=== PATIENT | female | born 1950 | race Caucasian/White ===

== ENCOUNTER 2016-06-03 19:47 | Observation (INO) | payer OTHER ==
[2016-06-03] VITALS (7 sets, daily range): BP systolic 169–196; BP diastolic 75–115; PULSE 76–102; RESP 16–20; TEMP 98.9; O2SAT 95–100
[~2016-06-03] VITALS: Ht 167.6 cm; Wt 90.2 kg
[~2016-06-03 19:47] MED LIST: AMIT25TA9 PO; ASPI81CH CHEW; CLON0.1T PO; HYDR25TA5 PO; LOSA100T PO; METO50TA PO
[2016-06-03] MEDS ORDERED: DIAZEPAM 5 MG TAB PO ONE (21:00)
[2016-06-03] MEDS ORDERED: ASPIRIN 81 MG CHEW TAB PO ONE (21:00)
[2016-06-03] MEDS ORDERED: MORPHINE SULFATE 4 MG/ML INJ IV PUSH ONE (21:00)
[2016-06-03] MEDS ORDERED: SODIUM CHLORIDE 0.9% FLUSH 5 ML FLUSH IVF PRN ×2 (21:00→23:15)
[2016-06-03 21:06] LABS: AUTOMATED NEUTROPHIL # 6.1 TH/MM3 (1.8-7.7); BASOPHIL # 0.1 TH/MM3 (0-0.2); BASOPHIL % 0.7 % (0.0-2.0); EOSINOPHIL # 0.1 TH/MM3 (0-0.4); EOSINOPHIL % 1.1 % (0.0-4.0); HEMATOCRIT 47.9 % (35.0-46.0); HEMO FLAGS DIFF FINAL; LYMPH % 31.5 % (9.0-44.0); LYMPHOCYTE # 3.3 TH/MM3 (1.0-4.8); MEAN CELL VOLUME 85.7 FL (80.0-100.0); MEAN CORPUSCULAR HEMOGLOBIN 27.9 PG (27.0-34.0); MEAN CORPUSCULAR HGB CONC 32.5 % (32.0-36.0); MONO % 7.3 % (0.0-8.0); NEUT % 59.4 % (16.0-70.0); PLATELET COUNT 260 TH/MM3 (150-450); RED BLOOD COUNT 5.59 MIL/MM3 (4.00-5.30); RED CELL DISTRIBUTION WIDTH 13.2 % (11.6-17.2); WHITE BLOOD COUNT 10.4 TH/MM3 (4.0-11.0)
[2016-06-03 21:18] LABS: APTT (PATIENT) 27.4 SEC (24.3-30.1); PROTHROMBIN TIME - PATIENT 10.5 SEC (9.8-11.6)
--- NOTE | 2016-06-03 21:22 | RADHPO ---
EXAM DATE/TIME: 06/03/2016 20:55 [facility] COMPARISON: No previous studies available for comparison. INDICATIONS : Chest pain. MEDICAL HISTORY : Hypertension. SURGICAL HISTORY : None. ENCOUNTER: Initial ACUITY: 4 - 6 days PAIN SCORE: 4/10 LOCATION: Bilateral upper chest FINDINGS: PA and lateral views of the chest demonstrate the lungs to be symmetrically aerated without evidence of mass, infiltrate or effusion. The cardiomediastinal contours are unremarkable. Osseous structure s are intact. CONCLUSION: No acute disease. Keith Warren MD on June 03, 2016 at 21:20 Board Certified Radiologist. This report was verified electronically.
--- NOTE | 2016-06-03 21:46 | PD ---
HPI Chief Complaint: Hypertension Time Seen by Provider: 20:30 Travel History International Travel<30 days: No Contact w/Intl Traveler<30days: No Traveled to known affect area: No History of Present Illness HPI Patient is a 66 year old female who comes in complaining of high blood pressure. She says for the past week she has noticed that her blood pressure has been elevated. She says she has tried relaxing as things have been very stressful in her life, but this has not helped. She says she feels differently when her blood pressure is elevated, but cannot really describe what she feels other than facial flushing. She says that since arrived in the Emergency Department she has started having chest pain and headache. She says she noticed her vision seemed to be blurred when she arrived, and she feels a little short of breath. She does acknowledge that she is very anxious about how she is feeling. PFSH Past Medical History Arthritis: Yes Cancer: No Cardiovascular Problems: Yes (HTN) High Cholesterol: Yes Chest Pain: Yes Diminished Hearing: No Endocrine: No Hypertension: Yes Musculoskeletal: Yes Psychiatric: No Respiratory: No Tetanus Vaccination: > 5 Years Influenza Vaccination: Yes ?: Not Past Surgical History Abdominal Surgery: Yes (APPY) Appendectomy: Yes (1979) Gynecologic Surgery: Yes (HYSTERECTOMY) Hysterectomy: Yes (COMPLETE 1992) Other Surgery: Yes (APPY, HYSTERECTOMY, FEET) Social History Alcohol Use: No Tobacco Use: No Substance Use: No Allergies-Medications (Allergen,Severity, Reaction): Coded Allergies: Amlodipine (Verified Allergy, Severe, Swelling, 06/03/16) Enalapril (Verified Allergy, Severe, Swelling, 06/03/16) HMG-CoA Reductase Inhibitors (Verified Allergy, Unknown, Patient denies, ) Sulfa (Verified Allergy, Unknown, Patient denies, 06/03/16) Uncoded Allergies: CO-Q10 (Adverse Reaction, Unknown, Patient denies , 06/03/16) Reported Meds & Prescriptions Reported Meds & Active Scripts Active Clonidine (Clonidine HCl) 0.1 Mg Tab 0.1 Mg PO BID Reported Metoprolol Tartrate 50 Mg Tab 50 Mg PO BID Amitriptyline (Amitriptyline HCl) 25 Mg Tab 25 Mg PO HS Hydrochlorothiazide 25 Mg Tab 25 Mg PO HS Losartan (Losartan Potassium) 100 Mg Tab 100 Mg PO HS Aspirin 81 Mg Chew 162 Mg CHEW DAILY Review of Systems Except as stated in HPI: all other systems reviewed are Neg General / Constitutional: No: Fever, Chills HENT: Positive: Headaches Cardiovascular: Positive: Chest Pain or Discomfort Respiratory: Positive: Shortness of Breath, No: Cough Gastrointestinal: Positive: Loss of Appetite, No: Nausea, Vomiting Musculoskeletal: No: Edema, Pain Neurologic: No: Weakness, Dizziness Physical Exam Narrative GENERAL: Awake and alert, appears anxious. SKIN: Warm and dry. HEAD: Atraumatic. Normocephalic. EYES: Pupils equal and round. No scleral icterus. X ocular movements intact. ENT: Mucous membranes pink and moist. NECK: Trachea midline. No JVD. CARDIOVASCULAR: Regular rate and rhythm. No murmur appreciated. RESPIRATORY: No accessory muscle use. Clear to auscultation. Breath sounds equal bilaterally. GASTROINTESTINAL: Abdomen soft, non-tender, nondistended. MUSCULOSKELETAL: No obvious deformities. No clubbing. No cyanosis. No edema. NEUROLOGICAL: Awake and alert. No obvious cranial nerve deficits. Motor grossly within normal limits. Normal speech. PSYCHIATRIC: Appropriate mood and affect; insight and judgment normal. Data Data Last Documented VS Vital Signs Date Time Temp Pulse Resp B/P Pulse Ox O2 Delivery O2 Flow Rate FiO2 06/03/16 22:55 83 16 169/75 98 Room Air 06/03/16 19:53 98.9 Orders Complete Blood Count With Diff (06/03/16 20:52) Comprehensive Metabolic Panel (06/03/16 20:52) Magnesium (Mg) (06/03/16 20:52) Prothrombin Time / Inr (Pt) (06/03/16 20:52) Act Partial Throm Time (Ptt) (06/03/16 20:52) Troponin I (06/03/16 20:52) Lipase (06/03/16 20:52) Ecg Monitoring (06/03/16 20:52) Bilateral Bp Monitoring (06/03/16 20:52) Iv Access Insert/Monitor (06/03/16 20:52) Oximetry (06/03/16 20:52) Aspirin Chew (Aspirin Chew) (06/03/16 21:00) Morphine Inj (Morphine Inj) (06/03/16 21:00) Sodium Chloride 0.9% Flush (Ns Flush) (06/03/16 21:00) Chest, Pa & Lat (06/03/16 20:52) Diazepam (Valium) (06/03/16 21:00) Electrocardiogram (06/03/16 20:10) Potassium Chloride (Kcl) (06/03/16 22:00) Clonidine (Catapres) (06/03/16 22:30) Potassium Chlor 20 Meq Premix (Kcl 20 Me (06/03/16 23:15) Place In Observation (06/03/16 23:08) Vital Signs (Adult) Q4H (06/03/16 23:08) Cardiac Rhythm .As Directed (06/03/16 23:08) ^ Notify Dr: Other .PRN (06/03/16 23:08) ^ Notify Dr. Parameters (06/03/16 23:08) Resp Oxygen Nasal Cannula (06/03/16 ) Ckmb (Isoenzyme) Profile (06/03/16 23:55) Ckmb (Isoenzyme) Profile (06/04/16 02:55) Troponin I (06/03/16 23:55) Troponin I (06/04/16 02:55) Electrocardiogram (06/03/16 23:55) Electrocardiogram (06/04/16 02:55) ^ Obtain (06/03/16 23:08) Sodium Chloride 0.9% Flush (Ns Flush) (06/03/16 23:15) Sodium Chloride 0.9% Flush (Ns Flush) (06/04/16 09:00) Admit Order (Ed Use Only) (06/03/16 ) CKMB (06/04/16 00:05) CKMB% (06/04/16 00:05) CKMB (06/04/16 03:05) CKMB% (06/04/16 03:05) Labs Laboratory Tests Test 06/03/16 21:00 White Blood Count 10.4 TH/MM3 Red Blood Count 5.59 MIL/MM3 Hemoglobin 15.6 GM/DL Hematocrit 47.9 % Mean Corpuscular Volume 85.7 FL Mean Corpuscular Hemoglobin 27.9 PG Mean Corpuscular Hemoglobin 32.5 % Concent Red Cell Distribution Width 13.2 % Platelet Count 260 TH/MM3 Mean Platelet Volume 10.1 FL Neutrophils (%) (Auto) 59.4 % Lymphocytes (%) (Auto) 31.5 % Monocytes (%) (Auto) 7.3 % Eosinophils (%) (Auto) 1.1 % Basophils (%) (Auto) 0.7 % Neutrophils # (Auto) 6.1 TH/MM3 Lymphocytes # (Auto) 3.3 TH/MM3 Monocytes # (Auto) 0.8 TH/MM3 Eosinophils # (Auto) 0.1 TH/MM3 Basophils # (Auto) 0.1 TH/MM3 CBC Comment DIFF FINAL Differential Comment Prothrombin Time 10.5 SEC Prothromb Time International 1.0 RATIO Ratio Activated Partial 27.4 SEC Thromboplast Time Sodium Level 141 MEQ/L Potassium Level 2.9 MEQ/L Chloride Level 104 MEQ/L Carbon Dioxide Level 27.2 MEQ/L Anion Gap 10 MEQ/L Blood Urea Nitrogen 12 MG/DL Creatinine 0.86 MG/DL Estimat Glomerular Filtration 66 ML/MIN Rate Random Glucose 101 MG/DL Calcium Level 10.0 MG/DL Magnesium Level 1.9 MG/DL Total Bilirubin 1.1 MG/DL Aspartate Amino Transf 21 U/L (AST/SGOT) Alanine Aminotransferase 31 U/L (ALT/SGPT) Alkaline Phosphatase 62 U/L Troponin I LESS THAN 0.02 NG/ML Total Protein 7.7 GM/DL Albumin 3.8 GM/DL Lipase 100 U/L MDM Medical Decision Making Medical Screen Exam Complete: Yes Emergency Medical Condition: Yes Medical Record Reviewed: Yes Interpretation(s) ECG shows sinus rhythm at 86, 0.[address] depression in V3 and V4. No ST elevation. Differential Diagnosis ACS versus NSTEMI versus STEMI versus pneumonia versus costochondritis versus panic attack Narrative Course Patient is a 66-year-old female comes in due to high blood pressure. When she got here she started to have chest pain. Exam shows no acute abnormalities, the patient does appear anxious. IV established, patient connected to the clinical research monitor. Labs sent. Chest x-ray shows no acute abnormalities. Patient given 2 mg of morphine and 5 mg of Valium for her symptoms. Given 162 mg of aspirin. Given 0.1 mg clonidine. Labs show a potassium of 2.9, this was replaced. Troponin is negative. Patient continues to have left-sided chest pain. We'll place an chest pain center for further management. Diagnosis Primary Impression: Chest pain Qualified Code: R07.9 - Chest pain, unspecified type Additional Impression: Uncontrolled hypertension Admitting Information Admitting Physician Requests: Observation Merline Marie MD Jun 03, 2016 21:46
[2016-06-03 21:53] LABS: ALKALINE PHOSPHATASE 62 U/L (45-117); ALT (GPT) 31 U/L (10-53); ANION GAP 10 MEQ/L (5-15); AST (GOT) 21 U/L (15-37); BICARBONATE 27.2 MEQ/L (21.0-32.0); BLOOD UREA NITROGEN 12 MG/DL (7-18); CHLORIDE 104 MEQ/L (98-107); GLOMERULAR FILTRATION RATE 66 ML/MIN (>89); MAGNESIUM 1.9 MG/DL (1.5-2.5); SODIUM (NA) 141 MEQ/L (136-145); TOTAL BILIRUBIN ADULT 1.1 MG/DL (0.2-1.0)
[2016-06-03 21:55] LABS: POTASSIUM 2.9 MEQ/L (3.5-5.1)
[2016-06-03] MEDS ORDERED: POTASSIUM CHLORIDE 10 MEQ CONTROLLED RELEASE TAB PO ONE (22:00)
[2016-06-03] MEDS ORDERED: cloNIDine HCL 0.1 MG TAB PO ONE (22:30)
[2016-06-04] VITALS (8 sets, daily range): BP systolic 144–182; BP diastolic 66–82; PULSE 61–79; RESP 16–20; TEMP 96.9–97.7; O2SAT 97–99
[2016-06-04] MEDS: POTASSIUM CHLOR 20 MEQ PREMIX 100 ML IV SCH ×2 (00:19→02:13)
[2016-06-04 00:40] LABS: CREATINE KINASE 137 U/L (26-192)
[2016-06-04 00:53] LABS: CKMB 1.7 NG/ML (0.5-3.6)
[2016-06-04 03:53] LABS: CREATINE KINASE 118 U/L (26-192)
[2016-06-04 04:05] LABS: CKMB 1.5 NG/ML (0.5-3.6)
[2016-06-04 08:31] LABS: POTASSIUM 3.5 MEQ/L (3.5-5.1)
[2016-06-04 08:58] LABS: BICARBONATE 28.7 MEQ/L (21.0-32.0); MAGNESIUM 2.1 MG/DL (1.5-2.5)
[2016-06-04] MEDS ORDERED: SODIUM CHLORIDE 0.9% FLUSH 5 ML FLUSH IVF SCH (09:00)
[2016-06-04] MEDS ORDERED: METOPROLOL TARTRATE 50 MG TAB PO SCH (09:15)
[2016-06-04] MEDS ORDERED: cloNIDine HCL 0.1 MG TAB PO SCH (09:15)
--- NOTE | 2016-06-04 11:18 | EKG ---
Date Performed: 06/04/2016 Time Performed: 02:31:06 PTAGE: 66 years EKG: Sinus rhythm Normal ECG PREVIOUS TRACING : 06/03/2016 20.10 Compared to prior tracing no significant change DOCTOR: Freddie Street Interpretating Date/Time 06/04/2016 11:17:14
--- NOTE | 2016-06-04 12:14 | HHI.HP ---
cc: Shawn Mendez MD [facility] Service [facility] Primary Care Physician Shawn Mendez MD Admission Diagnosis Chest Pain Diagnoses: (1) Chest pain Diagnosis: Principal (2) Hypertensive urgency Diagnosis: Principal (3) Epistaxis Diagnosis: Principal (4) Hypokalemia Diagnosis: Principal Chief Complaint: elevated BP, chest pain Travel History International Travel<30 Days: No Contact w/Intl Traveler <30 Da: No Traveled to Known Affected Are: No History of Present Illness Dictate year-old female with history of hypertension, hyperlipidemia, anxiety and depression is admitted to chest pain center. Patient states that her blood pressure has been elevated on and off for one week. She states she wasn't feeling bad and was monitoring it. She then states her blood pressure became elevated at 204/101 yesterday. States she tried to relax at home without relief. She states her face became flushed. She states she also experienced tunnel vision, shaking, "couldn't remember stuff", experienced blurry vision and a constant headache. She states she had company at her house this week and was exhausted from it and does admit to some increased anxiety. Patient additionally states she has frequent nosebleeds this week whereas they usually are sparsely occurring. Epistaxis episodes stopped with pressure. Patient denies anticoagulant use although is on ASA at home. Patient states when she arrived to the ED she started to experience pain right of the sternum, heaviness in the center of her chest, and tightness up under both collar bones. Pain lasted from 8pm to 2 am. She states she had some shortness of breath at that time. States she had tingling in the fingers of both hands and her hands and feet felt cold. Denies any worsening leg swelling recently. Denies any abdominal pain, nausea, vomiting, diarrhea, melena, hematochezia. Denies any history of DVT or pulmonary embolus, hemoptysis, estrogen use, recent trauma or surgery. Denies any fevers or chills, cold, or cough symptoms. Patient states she has had chest pain and palpitations in the past but this was different. She states her prior chest pain was stabbing sensation. Patient sees Dr. Bose for her blood pressure. He has been under control prior to this and she has been compliant with her medications. She is compliant with low-salt diet and states she exercises, dancing, doing elliptical, and swimming. Review of Systems Constitutional: DENIES: Fever, Chills, Dizziness Eyes: COMPLAINS OF: Blurred vision Ears, nose, mouth, throat: COMPLAINS OF: Epistaxis Respiratory: COMPLAINS OF: Shortness of breath, DENIES: Cough Cardiovascular: COMPLAINS OF: Chest pain, DENIES: Lower Extremity Edema Gastrointestinal: DENIES: Abdominal pain, Black stools, Bloody stools, Diarrhea , Vomiting Neurologic: COMPLAINS OF: Headache, Paresthesias, DENIES: Localized weakness, Speech Problems Psychiatric: COMPLAINS OF: Anxiety Other ROS x 10 negative unless otherwise stated above. Past Family Social History Past Medical History Arthritis Hypertension Hyperlipidemia DDD Anxiety and depression which are controlled Past Surgical History Appendectomy Hysterectomy Surgery on bilateral feet to straighten toes. Reported Medications Clonidine (Clonidine HCl) 0.1 Mg Tab 0.1 Mg PO BID Metoprolol Tartrate 50 Mg Tab 50 Mg PO BID Amitriptyline (Amitriptyline HCl) 25 Mg Tab 25 Mg PO HS Hydrochlorothiazide 25 Mg Tab 25 Mg PO HS Losartan (Losartan Potassium) 100 Mg Tab 100 Mg PO HS Aspirin 81 Mg Chew 162 Mg CHEW DAILY Allergies: Coded Allergies: Amlodipine (Verified Allergy, Severe, Swelling, 06/03/16) Enalapril (Verified Allergy, Severe, Swelling, 06/03/16) HMG-CoA Reductase Inhibitors (Verified Allergy, Unknown, Patient denies, ) Sulfa (Verified Allergy, Unknown, Patient denies, 06/03/16) Uncoded Allergies: CO-Q10 (Adverse Reaction, Unknown, Patient denies , 06/03/16) Family History Mother: Second pacemaker late in life, Alzheimer's. No history of HI or stroke. Father: Received kidney transplant. Had a heart issue while on dialysis. Social History Patient drinks a glass of wine 1-2 times per week. Patient tried smoking in her youth but was never smoked regularly. Denies illicit drug use. Physical Exam Vital Signs Vital Signs Date Time Temp Pulse Resp B/P Pulse Ox O2 Delivery O2 Flow Rate FiO2 06/04/16 09:00 64 06/04/16 08:20 71 17 176/82 97 Room Air 06/04/16 07:00 67 157/79 157/80 06/04/16 07:00 17 98 Room Air 06/04/16 07:00 69 17 Room Air 06/04/16 04:57 Room Air 06/04/16 04:55 97.7 61 16 148/66 99 Room Air 06/04/16 00:38 69 16 157/73 97 Room Air 06/04/16 00:00 79 16 182/79 99 Room Air 06/04/16 00:00 79 99 Room Air 06/03/16 23:47 95 21 06/03/16 22:55 83 16 169/75 98 Room Air 06/03/16 22:55 16 06/03/16 22:09 76 20 189/84 98 Room Air 06/03/16 21:38 82 16 186/82 99 Room Air 06/03/16 21:29 98 Room Air 06/03/16 21:29 18 06/03/16 20:40 80 18 180/80 06/03/16 19:53 98.9 102 20 196/115 100 Physical Exam GENERAL: This is a well-nourished, well-developed patient, in no apparent distress. SKIN: No rashes, ecchymoses or lesions. Cool and dry. HEAD: Atraumatic. Normocephalic. EYES: Pupils equal, round, reactive bilaterally. EOMs intact. No scleral icterus. No injection or drainage. ENT: No active nasal bleeding. Uvula midline. Airway patent. NECK: Trachea midline. CHEST: Reproducible tenderness under the right breast, but no reproducible tenderness over the sternum. CARDIOVASCULAR: Regular rate and rhythm. No murmurs. RESPIRATORY: Clear to auscultation. Breath sounds equal bilaterally. No wheezes , rales, or rhonchi. GASTROINTESTINAL: Normoactive bowel sounds. Abdomen soft, non-tender, nondistended. MUSCULOSKELETAL: No lower extremity edema. NEUROLOGICAL: Awake and alert. Patient admits to blurry vision in the right eye and lower visual zavala on exam, but does state she has a cataract in this eye. No other cranial nerve deficits noted. Motor grossly within normal limits. Normal speech. 5/5 strength in bilateral arms and legs. Laboratory Laboratory Tests Test 06/03/16 06/04/16 06/04/16 06/04/16 21:00 00:05 03:05 08:15 White Blood Count 10.4 Red Blood Count 5.59 Hemoglobin 15.6 Hematocrit 47.9 Mean Corpuscular Volume 85.7 Mean Corpuscular Hemoglobin 27.9 Mean Corpuscular Hemoglobin 32.5 Concent Red Cell Distribution Width 13.2 Platelet Count 260 Mean Platelet Volume 10.1 Neutrophils (%) (Auto) 59.4 Lymphocytes (%) (Auto) 31.5 Monocytes (%) (Auto) 7.3 Eosinophils (%) (Auto) 1.1 Basophils (%) (Auto) 0.7 Neutrophils # (Auto) 6.1 Lymphocytes # (Auto) 3.3 Monocytes # (Auto) 0.8 Eosinophils # (Auto) 0.1 Basophils # (Auto) 0.1 CBC Comment DIFF FINAL Differential Comment Prothrombin Time 10.5 Prothromb Time International 1.0 Ratio Activated Partial 27.4 Thromboplast Time Sodium Level 141 144 Potassium Level 2.9 3.5 Chloride Level 104 108 Carbon Dioxide Level 27.2 28.7 Anion Gap 10 7 Blood Urea Nitrogen 12 8 Creatinine 0.86 0.75 Estimat Glomerular Filtration 66 77 Rate Random Glucose 101 107 Calcium Level 10.0 9.1 Magnesium Level 1.9 2.1 Total Bilirubin 1.1 Aspartate Amino Transf 21 (AST/SGOT) Alanine Aminotransferase 31 (ALT/SGPT) Alkaline Phosphatase 62 Troponin I LESS THAN 0.02 LESS THAN 0.02 LESS THAN 0.02 Total Protein 7.7 Albumin 3.8 Lipase 100 Total Creatine Kinase 137 118 Creatine Kinase MB 1.7 1.5 Result Diagram: 06/03/16209906/04/16814 Imaging Last Impressions Chest X-Ray 06/03/162051 Signed Impressions: Service Date/Time: Friday, June 03, 2016 20:55 - CONCLUSION: No acute disease. Keith Warren MD Assessment and Plan Assessment and Plan 66-year-old female with: Hypertensive urgency: BP 196/115 on arrival. Experienced headache, blurry vision, tunnel vision, shakiness, and states she could not remember things although denies being directly lightheaded or dizzy. The patient has some blurry vision and lower visual zavala of the right eye although states she has a cataract in this eye. No other cranial nerve deficits noted. Patient had company at her home and does admit to some increased anxiety which could've contributed to her accelerated hypertension. Received 0.1 mg clonidine in ED. -Resume patient's home metoprolol, HCTZ, and Losartan -BP improved to 144/72 at ~1145. -Monitor BP Chest pain: Heaviness in the center of the chest with some reproducible tenderness below the right breast. Patient initially had some shortness of breath and tingling in the fingers but also states her feet and hands were cold. Chest pain only started on arrival to ED. Likely related to high blood pressure. Troponin 3 less than 0.02. Chest x-ray personally interpreted without acute disease. Patient received 162 mg of aspirin, 2 mg of morphine, and 5 mg of Valium in ED. -Continue home daily aspirin -Nitro prn -I spoke with Dr. Bose, the patient's senior merchandiser, and we agree the patient's chest pain is likely caused from her elevated blood pressure but it is reasonable to perform a nuclear stress test as patient's last nuclear test was in 2006. Myocardial perfusion scan is normal with EF of 63%. Epistaxis: Recurrent; frequently occurring this week. Likely related to accelerated hypertension. Hemoglobin and platelets normal. -Control BP appropriately. Hypokalemia: Resolved 2.9-->3.5. Could be due to HCTZ use. Patient given 40 mEq IV and 30 mEq by mouth KCl in ED. -Patient advised to eat a banana daily. DVT prevention: SCDs, early ambulation. Discharge disposition: Home in stable condition. Diet: Heart healthy Medications: Resume home medications. Activity: Regular Follow-up: PCP 2-3 days, Dr. Bose. Discussed Condition With Dr. Bose, senior merchandiser Problem Qualifiers (1) Chest pain: Qualified Code: R07.9 - Chest pain, unspecified type Tahira Solares Jun 04, 2016 12:13
[2016-06-04 12:19] LABS: HEMATOCRIT 43.9 % (35.0-46.0); MEAN CELL VOLUME 85.4 FL (80.0-100.0); MEAN CORPUSCULAR HEMOGLOBIN 28.5 PG (27.0-34.0); MEAN CORPUSCULAR HGB CONC 33.4 % (32.0-36.0); PLATELET COUNT 257 TH/MM3 (150-450); RED BLOOD COUNT 5.14 MIL/MM3 (4.00-5.30); RED CELL DISTRIBUTION WIDTH 12.8 % (11.6-17.2); REVIEW FLAG FINAL; WHITE BLOOD COUNT 8.8 TH/MM3 (4.0-11.0)
[2016-06-04] MEDS ORDERED: REGADENOSON INJ 0.4 MG/5 ML SYR IV ONE (14:04)
--- NOTE | 2016-06-04 14:49 | RADHPO ---
EXAM DATE/TIME: 06/04/2016 13:49 [facility] COMPARISON: No previous studies available for comparison. INDICATIONS: Substernal chest pain with dyspnea. Angina. DOSE: 25.4 mCi Tc99m Myoview at stress. 8.5 mCi Tc99m Myoview at rest. 0.4 mg Lexiscan STRESS SYMPTOMS: Asymptomatic. EJECTION FRACTION: 63% MEDICAL HISTORY: Hypertension. SURGICAL HISTORY: Appendectomy. Hysterectomy. ENCOUNTER: Initial ACUITY: 1 day PAIN SCALE: 5/10 LOCATION: Substernal chest TECHNIQUE: The patient underwent pharmacologic stress with infusion of prescribed dose. Continuous ECG tracing was monitored during stress. Gated SPECT imaging was performed after stress and conventional SPECT i maging was performed at rest. The examination was performed on a SPECT/CT scanner, both attenuation and non-corrected datasets were reviewed. FINDINGS: The gated Cine loop images demonstrate no focal wall motion abnormality. The left ventricular ejecti on fraction is calculated at 63%. The cardiac SPECT stress and rest images demonstrate no fixed or reversible defects to suggest infarc t or ischemia. CONCLUSION: No evidence of infarct, ischemia, or focal wall motion abnormality. RISK CATEGORY: Low risk (less than 1% annual mortality rate). Sergio Reyes MD on June 04, 2016 at 14:45 Board Certified Radiologist. This report was verified electronically.
[2016-06-04] MEDS ORDERED: NITROGLYCERIN 0.4 MG SL 25 TABS/BTL SL PRN (15:00)
--- NOTE | 2016-06-04 15:01 | HHI.DCPOC ---
Discharge Care Plan Diagnosis: (1) Hypertensive urgency (2) Chest pain (3) Epistaxis (4) Hypokalemia Your Health Problems Are: Chest Pain Goals to Promote Your Health * To prevent worsening of your condition and complications * To maintain your health at the optimal level Directions to Meet Your Goals Take your medications as prescribed Follow your dietary instruction Follow activity as directed Keep your appointments as scheduled Take your immunizations and boosters as scheduled If your symptoms worsen call your PCP, if no PCP go to Urgent Care Center or Emergency Room Smoking is Dangerous to Your Health. Avoid second hand smoke Call the 24-hour hour crisis hotline for domestic abuse at Tahira Sloares Jun 04, 2016 15:01
[2016-06-04] MEDS ORDERED: HYDROCHLOROTHIAZIDE 25 MG TAB PO SCH (21:00)
[2016-06-04] MEDS ORDERED: LOSARTAN 50 MG TAB PO SCH (21:00)
[2016-06-04] MEDS ORDERED: AMITRIPTYLINE HCL 25 MG TAB PO SCH (21:00)
--- NOTE | 2016-06-04 22:31 | EKG ---
Date Performed: 06/03/2016 Time Performed: 23:48:12 PTAGE: 66 years EKG: Sinus rhythm ST junctional depression is nonspecific Borderline ECG NO PREVIOUS TRACING DOCTOR: Freddie Street Interpretating Date/Time 06/04/2016 22:27:55
--- NOTE | 2016-06-04 22:36 | EKG ---
Date Performed: 06/03/2016 Time Performed: 20:10:02 PTAGE: 66 years EKG: Sinus rhythm ST junctional depression is nonspecific Borderline ECG PREVIOUS TRACING : 02/12/2007 04.54 Compared to prior tracing no significant change DOCTOR: Freddie Street Interpretating Date/Time 06/04/2016 22:32:51
--- NOTE | 2016-06-05 14:57 | TR ---
Date Performed: 06/04/2016 Time Performed: 13:52:38 DOCTOR: Jose Alberto Marrufo DRUG LIST: CLINICAL HISTORY: CHEST PAIN REASON FOR TEST: Chest pain. REASON FOR ENDING: OBSERVATION: CONCLUSION: Lexiscan stress test was performed under standard four minute protocol. Radionuclid e was injected one minute prior to ending the test. No electrocardiographic abormalities were present to suggest ischemia. Nuclear imaging and interpretation are pending. COMMENTS:
== END 2016-06-04 16:05 | disposition home or self-care (01) ==
LOC: PHEFT 19:47 → PHEDA 23:11 → PHEDH 06-04 04:27 → PH3B 06-04 08:33
PROVIDERS: ADMIT Hospitalist; ATTEND Hospitalist
DX: I16.0 Hypertensive urgency (principal); R07.9 Chest pain, unspecified; E78.5 Hyperlipidemia, unspecified; R04.0 Epistaxis; E87.6 Hypokalemia; R94.31 Abnormal electrocardiogram [ECG] [EKG]; E78.00 Pure hypercholesterolemia, unspecified; F41.9 Anxiety disorder, unspecified; M19.90 Unspecified osteoarthritis, unspecified site; Z79.82 Long term (current) use of aspirin
CPT/HCPCS: 71020; 78452; 80048; 80053; 82550; 82552; 83690; 83735; 84484; 85025; 85027; 85610; 85730; 93005; 93017; 96374; 99285; A9502; G0378; J2270; J2785; J3480